=== PATIENT | female | born 1990 | race African-American/Black ===

== ENCOUNTER 2018-10-08 13:20 | Emergency (ER) | payer MEDICAID, OTHER ==
[~2018-10-08] VITALS: Ht 154.9 cm; Wt 68.0 kg
[2018-10-08] MEDS ORDERED: IBUPROFEN 600MG TABLET PO ONE (15:00)
[2018-10-08] MEDS ORDERED: ONDANSETRON 4MG ODT PO ONE (15:00)
[2018-10-08 16:38] VITALS: BP 118/74
[2018-10-08 16:43] LABS: CLARITY URINE CLEAR (CLEAR); COLOR URINE YELLOW (YELLOW); KETONES URINE TRACE (NEGATIVE); LEUKOCYTE ESTERASE URINE NEGATIVE (NEGATIVE); NITRITE URINE NEGATIVE (NEGATIVE); OCCULT BLOOD URINE NEGATIVE (NEGATIVE); PH URINE 5.5 (4.5-8.0); PROTEIN URINE NEGATIVE (NEGATIVE); SPECIFIC GRAVITY URINE 1.023 (1.005-1.030)
== END 2018-10-08 18:25 | disposition home or self-care (01) ==
LOC: ER 13:20
DX: K52.9 Noninfective gastroenteritis and colitis, unspecified (principal)
CPT/HCPCS: 81003; 81025; 99283; Q0162